=== PATIENT | female | born 1970 | race Caucasian/White ===

== ENCOUNTER 2022-02-04 10:16 | Emergency (ER) | payer OTHER ==
[~2022-02-04 10:16] MED LIST: ADVIL200 MG PO; ALEVE220 MG PO; PEPCID40 MG PO; PROVENTIL HFA6.7 GM INH; PROZAC20 MG PO; TRIAMCINOLONE CREAM TOP; VITAMIN D21250 MCG PO; ZYVOX600 MG PO
[2022-02-04 13:25] LABS: HEMOGLOBIN 13.9 gm/dl (12.3-15.3); RED BLOOD COUNT 4.73 M/UL (4.00-5.10); WHITE BLOOD COUNT 10.9 K/UL (4.5-11.0)
[2022-02-04 13:37] LABS: BUN/CREATININE RATIO 15 (0-10)
== END 2022-02-04 17:20 | disposition home or self-care (01) ==
LOC: ER1 10:16
DX: R10.13 Epigastric pain (principal); R19.7 Diarrhea, unspecified; R10.816 Epigastric abdominal tenderness; I10 Essential (primary) hypertension; J45.909 Unspecified asthma, uncomplicated; Z90.49 Acquired absence of other specified parts of digestive tract; Z88.0 Allergy status to penicillin; Z88.1 Allergy status to other antibiotic agents; Z88.6 Allergy status to analgesic agent
CPT/HCPCS: 71045; 80053; 81001; 82550; 82553; 83605; 83690; 83735; 84484; 84703; 85025; 93005; 96374; 96375; 99284; C9113; J2405; Q9967

== ENCOUNTER → 2022-03-18 | Outpatient (CLI) | payer OTHER | LOC: RAD 12:19 | DX: R06.02 Shortness of breath (principal); M79.674 Pain in right toe(s) | CPT/HCPCS: 71046; 73630 ==